=== PATIENT | female | born 1965 | race Caucasian/White ===

== ENCOUNTER → 2025-01-06 | Outpatient (CLI) | payer SELFPAY, OTHER ==
--- NOTE | 2025-01-06 14:25 | ECHOD_ITS ---
Reason For Study Reason For Study: FATIGUE Procedure This was a 2D Doppler, Color Flow transthoracic echocardiogram. Exam performed in department. Left Ventricle Normal size and thickness. The LV ejection fraction is 65 %. Normal diastololic function. Right Ventricle Normal right ventricle. Atria The left and right atria are normal. Mitral Valve Trivial mitral valve insufficiency. Tricuspid Valve Mild tricuspid valve insufficiency. Right ventricular systolic pressure estimated to be 37 mmHg. Aortic Valve Normal aortic valve. Trivial to mild aortic valve insufficiency. Pulmonic Valve Trivial pulmonic valve insufficiency. Great Vessels Mildly dilated aortic root. Pericardium/Pleural No pericardial effusion. MMode/2D Measurements & Calculations LVIDd: 4.5 cm IVSd: 0.63 cm Ao root diam: 3.9 cm LVIDs: 3.0 cm LVPWd: 0.71 cm FS: 32.3 % LAV(MOD-bp): 31.3 ml LVAd ap4: 26.2 cm2 SV(MOD-sp4): 46.2 ml LAV(MOD-bp) Indexed: 19.1 ml/m2 LVLd ap4: 8.1 cm SI(MOD-sp4): 28.1 ml/m2 LAV(MOD-sp2): 44.9 ml EDV(MOD-sp4): 71.9 ml LAV(MOD-sp4): 21.7 ml EDV(sp4-el): 72.1 ml LVAs ap4: 13.7 cm2 LVLs ap4: 6.5 cm ESV(MOD-sp4): 25.7 ml ESV(sp4-el): 24.2 ml EF(MOD-sp4): 64.3 % EF(sp4-el): 66.4 % SV(sp4-el): 47.9 ml LA A4 area: 11.6 cm2 LA dimension(2D): 3.0 cm RA A4 area: 7.8 cm2 Time Measurements MV dec time: 0.21 sec Doppler Measurements & Calculations MV E max luis: 72.4 cm/sec Lat Peak E' Luis: 9.8 cm/sec Med Peak E' Luis: 7.0 cm/sec MV A max luis: 77.8 cm/sec E/E' lat: 7.4 E/E' med: 10.4 MV E/A: 0.93 MV V2 max: 81.5 cm/sec Ao V2 max: 122.5 cm/sec MV max P.7 mmHg MV dec slope: 394.0 cm/sec2 Ao max P.0 mmHg MV V2 mean: 50.7 cm/sec Ao V2 mean: 81.5 cm/sec MV mean P.2 mmHg Ao mean P.1 mmHg MV V2 VTI: 25.7 cm Ao V2 VTI: 30.7 cm AV (velocity ratio): 0.92 AI max luis: 421.8 cm/sec LV V1 max: 115.6 cm/sec PA V2 max: 78.1 cm/sec AI max P.2 mmHg LV V1 max P.4 mmHg PA V2 mean: 58.4 cm/sec LV V1 mean P.9 mmHg AI dec slope: 253.1 cm/sec2 LV V1 mean: 80.4 cm/sec AI P1/2t: 488.0 msec LV V1 VTI: 28.3 cm TR max luis: 237.1 cm/sec TR max P.5 mmHg ECHO/Echo Complete Interpretation Summary The LV ejection fraction is 65 %. Mild tricuspid valve insufficiency. Right ventricular systolic pressure estimated to be 37 mmHg. Trivial to mild aortic valve insufficiency. Mildly dilated aortic root. Ordering Physician: Chema Ramírez Referring Physician: Chema Ramírez Performed By: Nettie Ryan RCS
== END | disposition home or self-care (01) ==
PROVIDERS: PCP Physician Assistant; Referring Provider Internal Medicine Cardiovascular Disease; Visit Provider Internal Medicine Cardiovascular Disease
DX: R53.83 Other fatigue (principal)
CPT/HCPCS: 93306

== ENCOUNTER → 2025-01-08 | Outpatient (CLI) | payer SELFPAY, OTHER ==
--- NOTE | 2025-01-08 10:21 | STE_ITS ---
Reason For Study Reason For Study: CHEST PAIN Stress Results Protocol: Lino Protocol Maximum Predicted HR: 163 bpm Target HR: 139 bpm % Maximum Predicted HR: 87 % DurationHeart Rate Stage (mm:ss) (bpm) BP Comment BASELINE 75 122/68 STAGE 1 3:00 104 126/80 STAGE 2 3:00 123 150/82TIGHTNESS IN CENTER OF CHEST 2/10 PAIN, NO RADIATION STAGE 3 3:00 137 162/84DISCOMFORT ON BOTH SIDES OF CHEST-HEAVIER BREATHING NOTED STAGE 4 0:15 142 / HEAVIER BREATHING RECOVERY 89 136/78 Stress Duration: 9:15 mm:ss Maximum Stress HR: 142 bpm Baseline Echocardiogram Findings The left ventricular ejection fraction is 65 %. Normal systolic function. Stress Echo Wall motion Data Resting WM Intermediate WM Stress WM Resting Wall Motion Wall Motion Stress No regional wall motion abnormalities All segments Hyperkinetic. noted. EKG Data Normal baseline electrocardiogram. Sinus tachycardia with no ischemic changes at a good workload. No arrhythmias noted. ECHO/Stress Test Echo w/o Contrast Interpretation Summary Exercised on the treadmill for 9 minutes and 15 seconds. No ischemic ECG change s. Good blood pressure response to exercise. Mild chest discomfort reported. Hyperdynamic LV response to exercise with augmentation of all wall segments. No echo evidence of ischemia. Negative exercise ECG and echo for ischemia. Ordering Physician: Chema Ramírez Referring Physician: Chema Ramírez Performed By: Eva Cao RDCS
--- OUTSIDE RECORDS SUMMARY | 2025-01-08 18:57 | XMS RPT_ITS | CCD ---
Author Organization [facility] Inform ion Partnership [facility] Care Team Providers Care Allergist/Immunologist Name Role Phone Town Doctor, Out of Primary Care Provider [facility], [facility] of Referring Provider Unavailab sary Harper MD, Dr. Bear Attending Provider Nader ALMONTE, Jair Kwon Unavailable Dr. Gregor Victoria MD Unavailable Jay Rose MD Unavailable Josh SENAN, Rocio Rajan Unavailable Unavailable Sunitha RAYMOND, Shahida Britton Unavailable Unavailab sary Joseph LPN, Christina Anderson Unavailable Unavailab sary Whittaker PA-C, Sarahy Muse Unavailable Eusebio SENAN, Rosa Mercado Unavailable Unavaila carmen Pereyra LPN, She Unavailable Unavailable Unavailable Unavailable Sangita'GARY CACERES CNM Primary Care Unavailable VACCNIA, LILA Consulting Unavailable Sangita'GARY CACERES CNM Attending Unavailable Sangita'GARY CACERES CNM Admitting Unavailable PROVIDER, UNKNOWN Consulting Unavailable PROVIDER, UNKNOWN Consulting Unavailable PROVIDER, UNKNOWN Consulting Unavailable LILA OTOOLE Consulting Unavailable CHEMA HARPER MD Admitting Unavailable CHEMA HARPER MD Primary Care Unavailable CHEMA HARPER MD Attending Unavailable PROVIDER, UNKNOWN Consulting Unavailable PROVIDER, UNKNOWN Consulting Unavailable PROVIDER, UNKNOWN Consulting Unavailable Sangita'GARY CACERES CNM Primary Care Unavailable Sangita'GARY CACERES CNM Attending Unavailable SYDNIE, LILA Consulting Unavailable Sangita'GARY CACERES CNM Admitting Unavailable PROVIDER, UNKNOWN Consulting Unavailable PROVIDER, UNKNOWN Consulting Unavailable PROVIDER, UNKNOWN Consulting Unavailable Chema Harper Attending Unavailable [facility] Doctor, Out of Referring Unavailable [facility] Doctor, Out of Primary Care Unavailable Chema Harper Referring Unavailable Chema Harper Attending Unavailable Sarahy Price Primary Care Unavailable Chema Harper Attending Unavailable Sarahy Price Primary Care Unavailable Chema Harper Referring Unavailable Medications Current Medications Medication Drug Class(es) Dates Sig (Normalized) Sig (Original) ascorbate calcium-bioflavonoid (Mayra-C with Bioflavonoids) (1 source) Start: 12-02-2024 ascorbate calcium-bioflavonoid (Mayra-C with Bioflavonoids) Active PO December 02, 2024 12:00am hydrocortisone 25 mg/ml topical cream (2 sources) Corticosteroid Start: 10-12-2020 Hydrocortisone (Perianal) 2.5 % External Cream ; 1 (one) application BID to hemmorhoids for 0 days Quantity: 30 {Gram} Refills: 0 Ordered: 12-Oct-2020 GAGE Whittaker Start: 12-Oct-2020 Start: 10-12-2020 End: 10-19-2020 Anusol-HC 25 MG Rectal Suppo sitory ; 1 (one) Suppository two times daily per rectum for 7 days Quantity: 14 {Suppository} Refills: 0 Ordered: 12-Oct-2020 GAGE Whittaker Start: 12-Oct-2020 End: 19-Oct-2020 Status: Inactive liothyronine sodium 0.005 mg oral tablet (1 source) l-Triiodothyronine Start: 12-02-2024 take 1 tablet by mouth once daily Liothyronine (Cytomel) 5 mcg tablet Active 10 ug PO daily December 02, 2024 12:00am Progesterone (1 source) Progesterone Start: 12-02-2024 progesterone micronized Active PO DAILY December 02, 2024 12:00am Thyroid (Pork) (Chester Thyroid) 60 mg tablet (1 source) Start: 12-02-2024 take 1 tablet by mouth once daily Thyroid (Pork) (Chester Thyroid) 60 mg tablet Active 60 mg PO daily December 02, 2024 12:00am thyroid (halfway) 60 mg oral tablet (1 source) take 0.25 tablet by mouth every other day ARMOUR THYROID, 60MG (Oral Tablet) ; 1/4 every other day (60 MG) Completed/Discontinued Medications Medication Drug Class(es) Dates Sig (Normalized) Sig (Original) citalopram 20 mg oral tablet (1 source) Serotonin Reuptake Inhibitor Start: 06-22-2010 End: 04-18-2014 take 0.5 tablet by mouth once daily CITALOPRAM HYDROBROMIDE, 20MG (Oral Tablet) ; 1/2 Tablet daily for 0 days Quantity: 30 {Tablet} Refills: 5 Ordered: 18-Apr-2014 SEGUNDO Kaplan Start: 22-Jun-2010 End: 18-Apr-2014 Status: Inactive Comments: For home delivery Comment on above: For home delivery LORazepam 0.5 mg oral tablet (1 source) Benzodiazepine Start: 04-18-2014 End: 06-24-2014 take 1 tablet by mouth three times daily as needed for anxiety LORAZEPAM, 0.5MG (Oral Tablet) ; 1 (one) Tablet Tablet three times daily PRN anxiety for 0 days Quantity: 15 {Tablet} Refills: 0 Ordered: 24-Jun-2014 Start: 18-Apr-2014 End: 24-Jun-2014 Status: Inactive traZODone hydrochloride 50 mg oral tablet (1 source) Serotonin Reuptake Inhibitor Start: 03-15-2011 End: 04-18-2014 take 1 tablet by mouth once daily at bedtime TRAZODONE HCL, 50MG (Oral Tablet) ; 1 Tablet daily at HS for 0 days Quantity: 30 {Tablet} Refills: 0 Ordered: 18-Apr-2014 SEGUNDO Kaplan Start: 15-Mar-2011 End: 18-Apr-2014 Status: Inactive Problems Active Problems Problem Classification Problem Date Documented Da te Episodic/Chronic Hemorrhoids (5 sources) External hemorrhoids; Translations: [Residual hemorrhoidal skin tags] 10-12-2020 Episodic Malaise and fatigue (7 sources) Fatigue; Translations: [Other fatigue] Onset: 12-17-2024 12-02-2024 Episodic Nonspecific chest pain (7 sources) Chest pain; Translations: [Chest pain, unspecified] Onset: 12-17-2024 12-02-2024 Episodic Other aftercare (2 sources) Drug indicated; Translations: [Other terminal computer operator (current) drug therapy] 08-03-2011 Episodic Other ear and sense organ disorders (2 sources) Impacted cerumen 10-12-2020 Episodic Residual codes; unclassified (2 sources) Family history of coronary arteriosclerosis; Translations: [Family history of ischemic heart disease and other diseases of the circulatory system] 12-02-2024 Episodic Residual codes; unclassified (2 sources) Insomnia; Translations: [Insomnia, unspecified] 10-12-2020 Episodic Residual codes; unclassified (1 source) Family history of ischemic heart disease and other diseases of the circulatory system; Translations: [Family history of ischemic heart disease and other diseases of the circulatory system] Onset: 12-17-2024 Episodic Thyroid disorders (3 sources) Hypothyroidism; Translations: [Hypothyroidism, unspecified] Onset: 12-17-2024 12-02-2024 Chronic Past or Other Problems Problem Classification Problem Date Documented Date Episodic/Chronic Other screening for suspected conditions (not mental disorders or infectious disease) (3 sources) Encounter for screening mammogram for malignant neoplasm of breast; Translations: [Encounter for screening mammogram for malignant neoplasm of breast] Onset: 08-05-2024 Episodic Unclassified (1 source) hemorrhoids - Pt has had hemorrhoids for years and has been treated with cream and suppositories which has helped in the past. Pt had colonoscopy (11/2018 with Gregor Victoria) and has 1 internal hemorrhoid that surgeon advised should be taken out but she has not done that yet.Gradually they flare with BMs. Doesn't take stool softeners and BMs are regular.On Monday after a BM (did not strain with it) she had burning afterwards. Used OTC cream. Did sitz bath this am. Had 1/2 of old suppository so used that yesterday. 10-12-2020 Unclassified (1 source) Thrombosed Hemorrhoid - Pt. here with c/o thrombosed hemorrhoid. Started last week. Very painful cant sit ,stand, or lay for any lenght of time. Rx suppositorys which states helps but not getting any better. States bowel movments are regular. 06-26-2014 Unclassified (1 source) Follow up diagnostic procedure results - Diagnostic tests performed on : (04-22-14) include treadmill exercise stress test (And ECHO). Note for Diagnostic procedure results follow-up: Continues with chest heaviness. 05-02-2014 Unclassified (1 source) Chest pain - The onset of the pain has been gradual and has been occurring in a recurrent pattern for 2 months. The pain is described as a moderate pressure sensation (heaviness). The pain is described as being located in the substernal area and radiates to the left arm, right arm and shoulders. The pain is precipitated by exercise (and lying down). The symptoms are aggravated by exertion. The symptoms are relieved by rest. The symptoms have been associated with dyspnea, palpitations and shoulder pain, but have not been associated with blurred vision, cough, dizziness, diaphoresis, emotional stress, fever, headache, history of heart disease, history of ulcer disease, hypertension, nausea, syncope or vomiting. There have been no previous evaluations. There is a family history of coronary artery disease. 04-18-2014 Unclassified (1 source) left ear plugged - Patient has noted decreased hearing in left ear the last few days. She has had her ears irrigated previously and wants this done again. Patient is leaving for vacation tomorrow and will be gone for one week. 08-04-2011 Unclassified (1 source) Fatigue - The onset of the fatigue has been gradual and has been occurring in a persistent pattern for 4 months. The course has been increasing. The fatigue occurs all the time. The symptoms have been associated with abdominal pain (nausea and patient needs to lie down. Patient noted decreased appetite.), chest pain (heaviness on chest), dyspnea, headache and use of anti-depressants (Patient had used thought about 2 yrs ago,but she is not taking the Citalaprim now.). 03-15-2011 Results Test Name Value Interpretation Reference Range Facil ity CMP with eGFRon 01-03-2025 AGE 59 years Normal [facility] Comment on above: Performed By: #### 2 [id number] #### [facility],[address] [place], [place] [id number] Albumin [Mass/Vol] 3.7 g/dL Normal 3.4 - 5.0 [facility] Comment on above: Performed By: #### 2 29266 #### [facility],[address] [place], [place] [id number] Albumin/Globulin [Mass ratio] 0.9 {ratio} Normal 0.9 - 1.6 [facility] Comment on above: Performed By: #### 2 47439 #### [place] [address],[place] [address] ALK PHOS 50 U/L Normal 46 - 116 [facility] Comment on above: Performed By: #### 2 97246 #### [facility],[address] [place] [address]146 ALT [Catalytic activity/Vol] 37 U/L Normal 16 - 63 [facility] Comment on above: Performed By: #### 2 02320 #### [facility],[address] [place] [address]661 Anion gap [Moles/Vol] 10 mmol/L Normal 10 - 20 [facility] Comment on above: Performed By: #### 2 62627 #### [facility],[address] [place] [address] 46774 AST [Catalytic activity/Vol] 24 U/L Normal 13 - 39 [facility] Comment on above: Performed By: #### 2 20013 #### [facility],[address] [place] [address] 97565 B/C RATIO 16 ratio Normal 0 - 30 [facility] Comment on above: Performed By: #### 2 58965 #### [facility],[address] [place] [address] 50004 Bilirubin [Mass/Vol] 1.5 mg/dL High 0.2 - 1.0 [facility] Comment on above: Performed By: #### 2 59983 #### [facility],[address] [place] [address] 67384 Calcium [Mass/Vol] 9.0 mg/dL Normal 8.5 - 10.1 [facility] Comment on above: Performed By: #### 2 79953 #### [facility],[address] [place] [address] 19260 Chloride [Moles/Vol] 107 mmol/L Normal 98 - 107 [facility] Comment on above: Performed By: #### 2 89819 #### [facility],[address] [place] [address] 53561 CMP with eGFR Normal [facility] Comment on above: Result Comment: COMP REHENSIVE METABOLIC PANEL Performed By: #### 2 78350 #### [facility],[address] [place] [address] 94338 CO2 [Moles/Vol] 27.0 mmol/L Normal 21.0 - 32.0 [facility] Comment on above: Performed By: #### 2 76930 #### [facility],[address] [place] [address] 47143 Creatinine [Mass/Vol] 0.77 mg/dL Normal 0.55 - 1.02 [facility] Comment on above: Performed By: #### 2 75860 #### [facility],[address] [place] [address] GFR/1.73 sq M.predicted among non-blacks MDRD (S/P/Bld) [Vol rate/Area] mL/min/{1.73_m2} Normal 60 - 999 [facility] Comment on above: Performed By: #### 2 98168 #### [facility],[address] [place] [address] Result Comment: ACCO RDING TO THE NATIONAL KIDNEY DISEASE EDUCATION PROGRAM(NKDE), A NORMAL eGFR IS A VALUE GREATER THAN OR EQUAL TO 60 ML/MIN/1.73 SQ METERS. CHRONIC KIDNEY DISEASE: <60mL/MIN/1.73 SQ METERS KIDNEY FAILURE: <15mL/MIN/1.73 SQ METERS THIS TEST SHOULD ONLY BE USED FOR PATIENTS 18 YEARS OF AGE AND OLDER. Globulin (S) [Mass/Vol] 4.0 g/dL High 1.5 - 3.8 [facility] Comment on above: Performed By: #### 2 68527 #### [facility],[address] [place] [address] 58096 Glucose [Mass/Vol] 85 mg/dL Normal 74 - 106 [facility] Comment on above: Performed By: #### 2 24366 #### [facility],[address] [place] [address] 91374 Potassium [Moles/Vol] 4.1 mmol/L Normal 3.5 - 5.1 [facility] Comment on above: Performed By: #### 2 50783 #### [facility],[address] [place] [address] 17515 Protein [Mass/Vol] 7.7 g/dL Normal 6.4 - 8.2 [facility] Comment on above: Performed By: #### 2 11785 #### [facility],[address] [place] [address] 82581 Sodium [Moles/Vol] 140 mmol/L Normal 136 - 145 [facility] Comment on above: Performed By: #### 2 98507 #### [facility],[address] [place] [address] 88635 Urea nitrogen [Mass/Vol] 12 mg/dL Normal 7 - 18 [facility] Comment on above: Performed By: #### 2 61040 #### [facility],[address] [place] [address] 005[address] LIPID PROFILEon 01-03-2025 Cholesterol [Mass/Vol] 198 mg/dL Normal 0 - 240 [facility] Comment on above: Performed By: #### 2 55546 #### [facility],[address] [place] [address] 50121 Cholesterol in HDL [Mass/Vol] 54 mg/dL Normal 40 - 60 [facility] Comment on above: Performed By: #### 2 27688 #### [facility],[address] [place] [address] 56043 Cholesterol in LDL [Mass/Vol] 129 mg/dL Normal 0 - 129 [facility] Comment on above: Performed By: #### 2 67586 #### [facility],[address] [place] [address] 72925 Cholesterol.total/ Cholesterol in HDL [Mass ratio] 3.7 {ratio} Normal 0.0 - 5.0 [facility] Comment on above: Performed By: #### 2 08081 #### [facility],[address] [place] [address] 51934 Lipid 1996 panel Normal [facility] Comment on above: Result Comment: LIPI D PROFILE Performed By: #### 2 05258 #### [facility],[address] [place] [address] 45092 Triglyceride [Mass/Vol] 74 mg/dL Normal 0 - 150 [facility] Comment on above: Performed By: #### 2 15342 #### [facility],[address] [place] [address] 92522 Cardiology Visit Reporton Cardiology Visit Report [facility] [place] [id number] OFFICE VISIT Date of Service: 12/02/24 MR#: [id number] Acct: [id number] Name: KADI VICTORIA Rep #: [id number] : 1965 Provider: Dr. Chema Harper MD Age/Sex: 59/F Location: [facility] Status: Signed HPI HPI History of Present Illness Details: This pleasant lady has a family history of coronary artery disease. For the past few months, she has been feeling unduly exhausted after physical activity. Per her, she sometimes gets chest tightness with exertion but not reliably or predictably so. Denies any shortness of breath with exertion. Per her, it is an hour or so after the physical activity that she really feels exhausted. Denies orthopnea or PND. No ankle edema. In the past, she had some complaints of heart beating very strong particularly at night. However those symptoms have since resolved. Per patient, she has recently had her blood workup done by her primary care physician including CBC and TSH. These were all within normal range. Intake Vital Signs 12/02/24 11:15 Height 5 ft 2 in Weight: 143 lb BMI 26.2 BP 127/77 H Blood Pressure Location Lt brachial Position Sitting Respiration 18 Pulse 72 Pulse Source NIBP Intake Visit Reasons: CP (FREDDY) French Edge Operator Required: No Accompanied by: Is patient in pain?: No Allergies No Known Drug Allergies Allergy (Verified 12/02/24 11:16) Other Medications ???Medication ???Instructions ???Recorded ???Confirmed ???Type ascorbate calcium-bioflavonoid PO 12/02/24 12/02/24 History [Mayra-C with Bioflavonoids] liothyronine 5 mcg tablet (Cytomel) 10 mcg PO QDAY 12/02/24 5 History progesterone micronized PO DAILY 12/02/24 12/02/24 History thyroid (pork) 60 mg tablet 60 mg PO QDAY 12/02/24 12/02/24 Hi story (Chester Thyroid) Ejection fraction %: 55 Have you fallen in the past year?: No PFSH Medical History Chest pain Family history of coronary artery disease Fatigue Wheezing ROS Const Const: Positive for fatigue and weakness; Negative for headache(s) or weight gain ENT ENT: Negative for headache(s), dizziness, Nosebleed/epistaxis or balance problems Cardio Chest Pain: No Frequency: weekly and other Character: tightness and squeezing Onset: at rest Location: mid sternal and left chest Duration: brief Exacerbation: exercise Palpitations: Yes feels like its: fast Edema: None Muscle aches with walking: None Resp Respiratory: Negative for SOB with activity, SOB at rest or SOB orthopnea SOB lying down GI GI: Positive for nausea and heartburn; Negative vomiting Musc Musc: Positive for muscle weakness; Negative for muscle aches/ myalgia, joint pain or balance problems Neuro Neuro: Positive for lightheadedness (single episode) and weakness; Negative for dizziness, near syncope, syncope or headache(s) Endo Endo: Positive for fatigue Cardiology Exam Const Appearance: comfortable and no acute distress Nutritional Appearance: well nourished Neck Neck: no JVD Carotids: Negative bruit Chest Auscultation: Bilateral: Clear to Auscultation Cardio Rate: regular rate Rhythm: regular rhythm Heart sounds: S1 normal and S2 normal Neuro General: patient alert, patient awake and patient oriented x3 Extremities Lower Extremity Edema: None: Bilateral Supplemental Info Supplemental Information Echocardiogram 04/22/2014: Conclusion: 1. Normal left ventricular systolic function, ejection fraction 55%. 2. Trivial mitral insufficiency. 3. Mild tricuspid insufficiency. 4. Trivial aortic insufficiency. 5. Trivial pulmonic insufficiency. 6. Right ventricular systolic pressure estimated to be 19mmHg. Stress Test 04/22/2014: Stress SPECT with Treadmill Exercise Interpretation: Resting Images: Normal perfusion throughout the left ventricle. No resting defects noted. Stress Images: Normal perfusion throughout the left ventricle. No fixed defects to suggest infarct. No reversible defects developing with stress to suggest inducible ischemia. Gated SPECT/wall motion: Normal wall motion with brightening in all segments, calculated ejection fraction of 70%. Conclusion: 1. Stress nuclear study demonstrating no evidence of infarct or inducible ischemia. Electrocardiogram Stress Test Conclusion: 1. Good exercise tolerance achieving a workload of 10.1 METs. 2. Shortness of breath and substernal chest burning suspicious for angina noted with stress. 3. No ST changes to suggest ischemia elicited with stress. 4. Nuclear images demonstrate no evidence of infarct or inducible ischemia, calculated ejection fraction of 70%. Assessment and Plan Assessment and Plan (1) C (more content not included)... Normal [facility] 3D MAMM BILAT SCREEN [facility] 08-05-2024 3D MAMM BILAT SCREEN [place] [address] Patient: KADI VICTORIA Phone#: : [phone] Age: 59 Gender: F Pt. Type: Out Account: [id number] Location: Ordering: GARY SINCLAIR Exam Date: 08/05/2024/14:51 Family Phys: [facility] Charge Code: 687323 Physician: Ogle Order #: [id number] Dose#: PROCEDURE: BILATERAL SCREENING BREAST TOMOSYNTHESIS MAMMOGRAM WITH CAD COMPARISON: None. INDICATIONS: SCREENING BREAST COMPOSITION: Scattered areas fibroglandular density. FINDINGS: DIAGNOSTIC CATEGORY 1--NEGATIVE: RIGHT BREAST: No significant suspicious finding. LEFT BREAST: No significant suspicious finding. RECOMMENDATIONS: ROUTINE MAMMOGRAM AND CLINICAL EVALUATION IN 12 MONTHS. PLEASE NOTE: A NORMAL MAMMOGRAM DOES NOT EXCLUDE THE POSSIBILITY OF BREAST CANCER. A CLINICALLY SUSPICIOUS PALPABLE LUMP SHOULD BE BIOPSIED. THIS FACILITY UTILIZES A REMINDER SYSTEM TO ENSURE THAT ALL PATIENTS RECEIVE REMINDER LETTERS FOR APPOINTMENTS. THIS INCLUDES REMINDERS FOR ROUTINE MAMMOGRAMS, DIAGNOSITC MAMMOGRAMS, OR OTHER BREAST IMAGING INTERVENTIONS WHEN APPROPRIATE. THIS PATIENT WILL BE PLACED IN THE APPROPRIATE REMINDER SYSTEM. Dictated by: Jessica Byers MD on 08/06/2024 at 10:09 Approved by: Jessica Byers MD on 08/06/2024 at 10:12 Normal [facility] HPVon 06-27-2024 HPV Interp Normal See Interp HPVN [facility] Comment on above: Order Comment: Order placed by AP_HPV_ORDER rule from [id number] Result Comment: High Risk HPV Typing: NEGATIVE HPV types 16, 18, 31, 33, 35, 39, 45, 51, 52, 56, 58, 59, 66 and 68 DNA were undetectable or below the pre-set threshold. The woo High-Risk HPV DNA Test is not intended for use as a screening device for Pap normal women under age 30 and is not intended to substitute for regular Pap screening. The woo High-Risk HPV DNA Test is designed to augment existing methods for the detection of cervical disease and should be used in conjunction with clinical information derived from other diagnostic and screening tests, physical examinations and full medical history in accordance with appropriate patient management procedures. NOTE: A negative result does not preclude the presence of HPV infection because results depend on adequate specimen collection, absence of inhibitors and sufficient DNA to be detected. See Interp HPVN Performed By: #### H PV #### [address] [address] HPV Source Cervix Normal [facility] Comment on above: Order Comment: Order placed by AP_HPV_ORDER rule from [id number] Performed By: #### H PV #### [address] [address] Contour Path Tape Mill Operator Cytology Reporton 2024 Contour Path Tape Mill Operator Cytology Report . Pathology Reports Accession: Collected Date/Time: Received Date/Time: Pathologist: [id number] 06/20/2024 10:24 EST 06/21/2024 18:00 EST Contour Path Tape Mill Operator Cytology Report SPECIMEN: Specimen Description: Liquid Prep w/ HPV Specimen: Cervical/Endocervical Screening or Diagnostic: Screening RELEVANT HISTORY: LMP: MENOPAUSAL SPECIMEN ADEQUACY: SATISFACTORY FOR EVALUATION Endocervical/Transfor mational zone component present INTERPRETATION/RESULT S: NEGATIVE FOR INTRAEPITHELIAL LESION OR MALIGNANCY ADJUNCTIVE TESTING: HIGH RISK HPV DNA TESTING ORDERED, REPORT TO FOLLOW UNDER SEPARATE COVER COMMENT: This Pap Test was successfully processed and evaluated with the assistance of the [employer] ThinPrep Test Imaging System. Electronically Signed by Pathology report verified by [facility] Screened by: KK Electronically signed by Bambi LNOGORIA (ASCP) Sign-Out Date: 06/25/2024 15:53 Performing Lab: [facility], [address] [place] [address] Pathology Dept Disclaimer The Pap test is a screening test for cervical cancer. As evidenced by published data, it is subject to both inherent false negative and false positive results. Your patient's results should be interpreted in context with pertinent clinical history including gynecological examination. Normal [facility] 25-Hydroxy D2+D3on 25-Hydroxy D Total 49.0 ng/mL Normal 30.0-100.0 [facility] Comment on above: Performed By: #### D 2D3 #### [facility] Chemistry [address] [place] [phone] #### FREET3 #### [facility] Routine Lab [address] [place] [phone] 25-Hydroxy D2 <4.0 Normal [facility] Comment on above: Performed By: #### D 2D3 #### [facility] Chemistry [address] [phone] #### FREET3 #### [facility] Routine Lab [address] [address] 25-Hydroxy D3 49.0 ng/mL Normal [facility] Comment on above: Performed By: #### D 2D3 #### [facility] Chemistry [address] [phone] #### FREET3 #### [facility] Routine Lab [address] [place] [phone] Free T3on 06-23-2021 Free T3 [Mass/Vol] 4.3 pg/mL High 2.3-4.1 [facility] Reference Lab Comment on above: Performed By: #### D 2D3 #### [facility] Chemistry [address] [place], [place] [address] #### FREET3 #### [facility] Routine Lab [address] [place], [place] [id number] Final Surgical Pathology Rep justin 11-27-2020 Final Surgical Pathology Report . Pathology Reports Accession: Collected Date/Time: Received Date/Time: Pathologist: [id number] 11/25/2020 08:35 EDT 11/26/2020 08:35 EDT ESTELLA KAY MD Final Surgical Pathology Report DIAGNOSIS: HEMORRHOIDS - ANAL SKIN AND GLANDULAR MUCOSA WITH HISTOLOGIC FEATURES OF HEMORRHOIDS. NEGATIVE FOR DYSPLASIA OR MALIGNANCY. COMMENT: [facility] - [id number] CLINICAL INFORMATION: HEMORRHOIDS SPECIMEN: A HEMORRHOIDS GROSS DESCRIPTION: A. Received in formalin, labeled with the patients name, Case #Reymundo, and hemorrhoid are 8 cardozo -lilly wrinkled portions of soft tissue possible skin ranging in size from 0.5 to 1.5 cm greatest dimension. TS -1. Dictated by JAY LOPEZ MICROSCOPIC DESCRIPTION: Slides reviewed. Electronically Signed by Pathology Report verified by [facility] Electronically signed by ESTELLA KAY Sign out Date: 11/27/2020 14:40 Performing Lab: [facility], [address] [place] [address] ([place]) Comment on above: Performed By: #### S PFR #### [place] [address] Laboratory - Chemistry and C hemistry - challengeon 01-01-2014 T3/Triiodothyronin e (T3) uptake index [Ratio] 43 % Abnormal 24 - 34 % [facility], [facility].; [facility] [employer] Work Phone: T4 [Mass/Vol] 6.5 ug/dL Normal 6.0 - 12.2 ug/dL [facility], [facility].; [facility] [employer]. Work Phone: T4/Triiodothyronin e (T3) uptake index [Mass ratio] 2.8 Normal 1.0 - 4.[address] [facility]; [facility] Work Phone: TSH Qn 2.92 m[IU]/L Normal 0.34 - 5.60 {uIU/ml} [facility]; [facility] Work Phone: Laboratory - Chemistry and C hemistry - challengeon 03-15-2011 Albumin [Mass/Vol] 4.5 g/dL Normal 3.6 - 5.1 g/dL [facility]; [facility] Albumin/Globulin [Mass ratio] 1.3 {ratio} Normal 1.0 - 2.[address] [facility]; [facility] ALP [Catalytic activity/Vol] 59 U/L Normal 33 - 115 U/L [facility]; [facility]. ALT [Catalytic activity/Vol] 19 U/L Normal 6 - 40 U/L [facility]; [facility]. AST [Catalytic activity/Vol] 21 U/L Normal 10 - 30 U/L [facility]; [facility] Bilirubin [Mass/Vol] 1.3 mg/dL Abnormal 0.2 - 1.2 mg/dL [facility]; [facility], [facility] Calcium [Mass/Vol] 10.0 mg/dL Normal 8.6 - 10. 2 mg/dL [facility].; [facility]. Chloride [Moles/Vol] 104 mmol/L Normal 98 - 110 mmol/L [facility]; [facility], [facility]. CO2 [Moles/Vol] 22 mmol/L Normal 21 - 33 mmol/L [facility]; [facility], [facility] Creatinine [Mass/Vol] 0.90 mg/dL Normal 0.59 - 1.07 mg/dL [facility].; [facility] GFR/1.73 sq M.predicted among blacks MDRD (S/P/Bld) [Vol rate/Area] 91 {ML/MIN/1.73M2} Normal [facility], [facility].; [facility], [facility] GFR/1.73 sq M.predicted MDRD (S/P/Bld) [Vol rate/Area] 78 {ML/MIN/1.73M2} Normal [facility], [facility].; [facility], [facility] Globulin (S) [Mass/Vol] 3.4 g/dL Normal 2.2 - 3.9 g/dL [facility], [facility].; [facility], [facility] Glucose [Mass/Vol] 83 mg/dL Normal 65 - 99 mg/dL [facility].; [facility], [facility]. Potassium [Moles/Vol] 4.2 mmol/L Normal 3.5 - 5.3 mmol/L [facility].; [facility], [facility] Protein [Mass/Vol] 7.9 g/dL Normal 6.2 - 8.3 g/dL [facility].; [facility], [facility] Sodium [Moles/Vol] 137 mmol/L Normal 135 - 146 mmol/L [facility], [facility].; [facility], [facility]. TSH Qn 1.56 m[IU]/L Normal 0.40 - 4.50 {mIU/L} [facility].; [facility], [facility]. Urea nitrogen [Mass/Vol] 12 mg/dL Normal 7 - 25 mg/dL [facility], [facility].; [facility], [facility] Urea nitrogen/Creatinin e [Mass ratio] 13.1 mg/mg Normal 6 - [address] [facility]; [facility]. Laboratory - Hematology and Cell countson 03-15-2011 Basophils (Bld) [#/Vol] 10 {Cells}/uL Normal 0 - 200 {Cells}/uL [facility].; [facility], [facility]. Basophils/100 WBC (Bld) 0 % Normal 0 - 2 % [facility], [facility].; [place] [employer] [facility], [facility]. Eosinophils (Bld) [#/Vol] 190 {Cells}/uL Normal 15 - 500 {Cells}/uL [facility].; [facility], Inc[facility] Eosinophils/100 WBC (Bld) 2 % Normal 0 - 8 % [facility].; [facility] Erythrocyte distribution width (RBC) [Ratio] 13.1 % Normal 11.0 - 15.0 % [facility].; [facility] Hematocrit (Bld) [Volume fraction] 40.7 % Normal 35.0 - 45.0 % [facility].; [facility] Hemoglobin (Bld) [Mass/Vol] 13.7 g/dL Normal 11.7 - 15.5 g/dL [facility].; [facility] Lymphocytes (Bld) [#/Vol] 3350 {Cells}/uL Normal 850 - 3900 {Cells}/uL [facility].; [facility] Lymphocytes/100 WBC (Bld) 36 % Normal 15 - 49 % [facility].; [place] [facility]. MCH (RBC) [Entitic mass] 33.8 pg Abnormal 27.0 - 33.0 PG [facility].; [place] [facility], [facility]. MCHC (RBC) [Mass/Vol] 33.7 g/dL Normal 32.0 - 36.0 g/dL [facility].; [place] [employer] [facility], [facility]. MCV (RBC) [Entitic vol] 100.4 fL Abnormal 80.0 - 100.0 fL [facility].; [place] [facility]. Monocytes (Bld) [#/Vol] 420 {Cells}/uL Normal 200 - 950 {Cells}/uL [facility].; [place] [employer] [facility]. Monocytes/100 WBC (Bld) 5 % Normal 0 - 13 % [facility].; [place] [employer] [facility], [facility]. Neutrophils (Bld) [#/Vol] 5230 {Cells}/uL Normal 1500 - 7800 {Cells}/uL [facility].; [place] [facility], [facility]. Neutrophils/100 WBC (Bld) 57 % Normal 38 - 80 % [facility].; [place] [facility], [facility]. Platelets (Bld) [#/Vol] 188 10*3/uL Normal 140 - 400 10*3/uL [facility].; [facility], [facility]. RBC (Bld) [#/Vol] 4.06 10*6/uL Normal 3.80 - 5.1 0 10*6/uL [facility], [facility].; [facility], Inc[facility] WBC (Bld) [#/Vol] 9.2 10*3/uL Normal 3.8 - 10.8 10*3/uL [facility] [place] [facility], Inc[facility] Vital Signs Date Time Vital Sign Value Performing Clinician Facmelony lity 12-02-2024 11:15-0400 Body height 157.48 cm Out [facility] 12-02-2024 11:15-0400 Body mass index (BMI) [Ratio] 26.2 kg/m2 [facility] 12-02-2024 11:15-0400 Body weight 64.86 kg [facility] 12-02-2024 11:15-0400 Diastolic blood pressure 77 mm[Hg] [facility] 12-02-2024 11:15-0400 Heart rate 72 /min Out [facility] 12-02-2024 11:15-0400 Respiratory rate 18 /min Out [facility] 12-02-2024 11:15-0400 Systolic blood pressure 127 mm[Hg] [facility] 10-12-2020 10:56-0400 Body height 157.48 cm Christina Joseph LPN [facility] [place] [facility], [facility] 10-12-2020 10:56-0400 Body mass index (BMI) [Ratio] 25.42 kg/m2 Christina Joseph LPN [facility], [facility].; [place] [facility], [facility]. 10-12-2020 10:56-0400 Body surface area Derived from formula 1.64 m2 Christina Joseph LPN [facility], [facility].; [place] [employer], [facility] 10-12-2020 10:56-0400 Body weight 63.05 kg Christina Joseph LPN [facility], [facility].; [place] [facility], [facility]. 10-12-2020 10:56-0400 Diastolic blood pressure 78 mm[Hg] Christina Anderson Jake RAYMOND [employer]. Comment on above: Patient Position: Sitting; Cuff Location : Right Arm; Cuff Size: Standard 10-12-2020 10:56-0400 Heart rate 68 /min Christina Anderson Jake RAYMOND [place] [facility], [employer].; [employer] Comment on above: Pattern: Regular 10-12-2020 10:56-0400 Systolic blood pressure 114 mm[Hg] Christina Joseph BOAT DESIGNER [employer] Comment on above: Patient Position: Sitting; Cuff Location : Right Arm; Cuff Size: Standard 06-24-2014 13:29-0500 Body height 157.48 cm Luke Nader PA-C Work Phone: [employer]. 06-24-2014 13:29-0500 Body mass index (BMI) [Ratio] 27.25 kg/m2 LuNovaTorqueNader PA-C Work Phone: [employer]. 06-24-2014 13:29-0500 Body surface area Derived from formula 1.69 m2 Luke Nader PA-C Work Phone: [employer] 06-24-2014 13:29-0500 Body weight 67.59 kg LuNovaTorqueNader PA-C Work Phone: [employer]. 06-24-2014 13:29-0500 Diastolic blood pressure 94 mm[Hg] Luke Nader PA-C Work Phone: [employer]. Comment on above: Patient Position: Sitting; Cuff Location : Left Arm; Cuff Size: Standard 06-24-2014 13:29-0500 Heart rate 89 /min Luke Nader PA-C Work Phone: [employer] Comment on above: Pattern: Regular 06-24-2014 13:29-0500 Systolic blood pressure 119 mm[Hg] Luke Nader PA-C Work Phone: [place] [employer]. Comment on above: Patient Position: Sitting; Cuff Location : Left Arm; Cuff Size: Standard 05-01-2014 16:08-0500 Body height 157.48 cm Luke Nader PA-C Work Phone: [employer]. 05-01-2014 16:08-0500 Body mass index (BMI) [Ratio] 27.44 kg/m2 Luke Nader PA-C Work Phone: [employer] 05-01-2014 16:08-0500 Body surface area Derived from formula 1.69 m2 Luke Nader PA-C Work Phone: [employer]; [employer]. 05-01-2014 16:08-0500 Body weight 68.04 kg Luke Nader PA-C Work Phone: [employer]; [employer]. 05-01-2014 16:08-0500 Diastolic blood pressure 81 mm[Hg] Luke Nader PA-C Work Phone: [employer]; [employer]. Comment on above: Patient Position: Sitting; Cuff Location : Left Arm; Cuff Size: Large 05-01-2014 16:08-0500 Heart rate 85 /min Luke Nader PA-C Work Phone: [employer]; [employer]. Comment on above: Pattern: Regular 05-01-2014 16:08-0500 Systolic blood pressure 131 mm[Hg] Luke Nader PA-C Work Phone: [employer]; [employer] Comment on above: Patient Position: Sitting; Cuff Location : Left Arm; Cuff Size: Large 04-18-2014 14:37-0400 Body height 157.48 cm Rosa Mercado Eusebio [facility], Inc.; [employer] [facility], [employer]. 04-18-2014 14:37-0400 Body mass index (BMI) [Ratio] 27.44 kg/m2 Rosa Rogelio Kaplan [facility], Inc.; [employer] [facility], [employer]. 04-18-2014 14:37-0400 Body surface area Derived from formula 1.69 m2 Rosa Rogelio Kaplan [facility], [facility].; [employer], [employer]. 04-18-2014 14:37-0400 Body temperature 98.3 [degF] Rosa Rogelio Kaplan [facility], [employer]. Comment on above: Method: Tympanic 04-18-2014 14:37-0400 Body weight 68.04 kg Rosa Rogelio Kaplan [facility], [facility].; [employer], [employer]. 04-18-2014 14:37-0400 Diastolic blood pressure 93 mm[Hg] Rosa Rogelio Kaplan [facility] [employer] [facility], [facility].; [employer], [employer]. Comment on above: Patient Position: Sitting; Cuff Location : Right Arm; Cuff Size: Standard 04-18-2014 14:37-0400 Heart rate 92 /min Rosa Rogelio Kaplan [facility], [facility] [employer], [employer]. Comment on above: Pattern: Regular 04-18-2014 14:37-0400 Systolic blood pressure 137 mm[Hg] Rosa Rogelio Kaplan BO[employer] DES[employer] [place] [employer] [facility], [facility] [employer]. Comment on above: Patient Position: Sitting; Cuff Location : Right Arm; Cuff Size: Standard 08-03-2011 14:44-0500 Body height 157.48 cm Rocio Moreno [facility] [employer] [facility], [facility].; [employer], [employer]. 08-03-2011 14:44-0500 Body mass index (BMI) [Ratio] 27.58 kg/m2 Rocio Moreno [facility] [employer] [facility], [employer].; [employer] 08-03-2011 14:44-0500 Body surface area Derived from formula 1.7 m2 Rocio Mohini Josh BOAT DESIGNER [facility] [facility], [employer].; [employer], [employer]. 08-03-2011 14:44-0500 Body weight 68.4 kg Rocio Mohini Moreno BOAT DESIGNER [facility], [facility].; [employer] 08-03-2011 14:44-0500 Diastolic blood pressure 78 mm[Hg] Rocio C [place] BOAT DESIGNER [employer] [facility], [facility].; [employer], [employer]. Comment on above: Patient Position: Sitting; Cuff Location : Left Arm; Cuff Size: Large 08-03-2011 14:44-0500 Heart rate 79 /min Rocio C Josh BOAT DESIGNER [employer] [facility], [facility] [employer], [employer]. Comment on above: Pattern: Regular 08-03-2011 14:44-0500 Systolic blood pressure 113 mm[Hg] Rocio C Josh BO[employer] DES[employer]ER [place] [employer] [facility], [facility] [employer], [employer]. Comment on above: Patient Position: Sitting; Cuff Location : Left Arm; Cuff Size: Large 03-15-2011 11:36-0400 Body height 157.48 cm Shahida Tobi Aliceaert BOAT DESIGNER [employer] [facility], [facility].; [employer], [employer]. 03-15-2011 11:36-0400 Body mass index (BMI) [Ratio] 27.14 kg/m2 Shahida L Richert [employer] DES[employer] [place] [employer] [facility], [facility].; [employer], [employer]. 03-15-2011 11:36-0400 Body surface area Derived from formula 1.68 m2 Shahida L Richert [employer] DES[employer] [place] [employer] [facility], [facility].; [employer], [employer]. 03-15-2011 11:36-0400 Body weight 67.31 kg Shahida L Richert [employer] DES[employer], [employer], [employer]. 03-15-2011 11:36-0400 Diastolic blood pressure 86 mm[Hg] Shahida L Richert BOAT DES[employer]ER [employer], [employer]. Comment on above: Patient Position: Sitting; Cuff Location : Right Arm; Cuff Size: Large 03-15-2011 11:36-0400 Heart rate 90 /min Shahida L Richert BOAT DESIGNER [employer] [facility].; [employer]. Comment on above: Pattern: Regular 03-15-2011 11:36-0400 Systolic blood pressure 122 mm[Hg] Shahida Helton LPN [employer] [facility] [employer]. Comment on above: Patient Position: Sitting; Cuff Location : Right Arm; Cuff Size: Large Encounters Encounter Date Encounter Type Care Provider Facility Start: 01-08-2025 ambulatory [facility] Facility:[facility] Start: 01-06-2025 ambulatory [facility] Facility:[facility] Start: 01-03-2025 End: 01-03-2025 ambulatory [facility] Start: 12-02-2024 End: 12-02-[address] Chema Harper MD -[facility] Work Phone: Start: 12-02-2024 End: 12-02-[address] [facility] Doctor [facility] Work Phone: Start: 08-05-2024 End: 08-05-2024 ambulatory [facility] Start: 06-20-2024 End: 06-20-2024 ambulatory [facility] Start: 06-20-2024 Encounter for gynecological examination (general) (routine) without abnormal findings [facility] Start: 10-12-2020 End: 10-12-2020 Patient encounter procedure Jair Doe PA-C Work Phone: [facility] Start: 12-14-2018 End: 12-14-2018 Historical Summary Jair FARMER-Mohini Work Phone: [facility] Start: 06-24-2014 End: 06-26-2014 Office outpatient visit 15 minutes Jair Doe PA-C Work Phone: [employer] Start: 06-20-2014 End: 06-20-2014 Medication Jair FARMER-Mohini Work Phone: [employer] Start: 05-01-2014 End: 05-02-2014 Office outpatient visit 15 minutes Luke Nader PA-C Work Phone: [employer]. Start: 04-22-2014 End: 04-22-2014 Orders Luke Nader PA-C Work Phone: [employer] [facility]. Start: 04-18-2014 End: 04-18-2014 Office outpatient visit 15 minutes Luke Nader PA-C Work Phone: [employer] Start: 08-03-2011 End: 08-04-2011 Patient encounter procedure Luke Nader PA-C Work Phone: [employer] Start: 03-15-2011 End: 03-15-2011 Patient encounter procedure Luke Nader PA-C Work Phone: [employer] Start: 06-22-2010 End: 06-22-2010 Medication Luke Nader PA-C Work Phone: [employer] Start: 04-28-2010 End: 04-28-2010 Historical Summary Luke Nader PA-C Work Phone: [employer] Procedures Date Procedure Procedure Detail Performing Clinician Start: 12-12-2018 End: 12-12-2018 Screening colonoscopy Jair Mixonetler P A-C Work Phone: Comment on above: diverticulitisDr Johnie Victoria Start: 06-24-2014 End: 06-24-2014 No Known Health Maintenance History She Roddy RAYMOND Start: 04-22-2014 End: 04-28-2014 Echo tthrc r-t 2d w/wom-mode compl spec&colr d Jay Rose MD Work Phone: Start: 04-18-2014 End: 04-28-2014 Myocardial spect multiple studies Jay Rose MD Work Phone: Start: 04-18-2014 End: 04-28-2014 Ecg routine ecg w/least 12 lds i&r only Jay Rose MD Work Phone: Start: 08-03-2011 End: 08-04-2011 Removal impacted cerumen instrumentation unilat Jay Rose MD Work Phone: Plan of Treatment Date Care Activity Detail Author Start: 12-02-2024 Evaluation of diagno stic study results [facility] Payers Date Payer Category Payer Self-pay 2024 Unknown [id number] 1965 Unknown [id number] [id number] [id number] 1965 Unknown [id number] [id number] [id number] 1965 Unknown [id number] 2.16.8 [id number] Unknown 197 Unknown . Unknown [id number] 2.16.8 [id number] Unknown [id number] 2.16.8 [id number] Unknown [id number] 2.16.8 [id number] Social History Date Type Detail Facility Tobacco smoking stat [facility] Unknown if ever smoked [facility] Work Phone: Start: 1965 Sex Assigned At Female [facility] Caffeine Use Caffeine Use [facility] [employer] Tobacco Use: Tobacco Use: ; N ever smoker. [employer] Never smoked tobacco [employer] Work Phone: Progress note 12-02-2024 Note Date & Type Note Facility 12-02-2024 Progress note [facility] Progress note 12-02-2024 Note Date & Type Note Facility 12-02-2024 Progress note Note Date/Time December 02, 2024 11:55am [facility] [address] [place] [address] OFFICE VISIT Date of Service: 12/02/24 MR#: [id number] Acct: [id number] Name: KADI VICTORIA Rep #: [id number] : 1965 Provider: Dr. Darius Harper MD Age/Sex: 59/F Location: [facility] Status: Signed HPI HPI History of Present Illness Details: This pleasant lady has a family history of coronary artery disease. For the past few months, she has been feeling unduly exhausted after physical activity. Per her, she sometimes gets chest tightness with exertion but not reliably or predictably so. Denies any shortness of breath with exertion. Per her, it is an hour or so after the physical activity that she really feels exhausted. Denies orthopnea or PND. No ankle edema. In the past, she had some complaints of heart beating very strong particularly at night. However those symptoms have since resolved. Per patient, she has recently had her blood workup done by her primary care physician including CBC and TSH. These were all within normal range. Intake Vital Signs 12/02/24 11:15 Height 5 ft 2 in Weight: 143 lb BMI 26.2 BP 127/77 H Blood Pressure Location Lt brachial Position Sitting Respiration 18 Pulse 72 Pulse Source NIBP Intake Visit Reasons: SILVIA (FREDDY) French Edge Operator Required: No Accompanied by: Is patient in pain?: No Allergies No Known Drug Allergies Allergy (Verified 12/02/24 11:16) Other Medications ?Medication ?Instructions ?Recorded ?Confirmed ?Type ascorbate calcium-bioflavonoid PO 12/02/24 12/02/24 Hi story [Mayra-C with Bioflavonoids] liothyronine 5 mcg tablet (Cytomel) 10 mcg PO QDAY 12/02/24 History progesterone micronized PO DAILY 12/02/24 12/02/24 H istory thyroid (pork) 60 mg tablet 60 mg PO QDAY 12/02/24 History ([place] Thyroid) Ejection fraction %: 55 Have you fallen in the past year?: No PFSH Medical History Chest pain Family history of coronary artery disease Fatigue Wheezing ROS Const Const: Positive for fatigue and weakness; Negative for headache(s) or weight gain ENT ENT: Negative for headache(s), dizziness, Nosebleed/epistaxis or balance problems Cardio Chest Pain: No Frequency: weekly and other Character: tightness and squeezing Onset: at rest Location: mid sternal and left chest Duration: brief Exacerbation: exercise Palpitations: Yes feels like its: fast Edema: None Muscle aches with walking: None Resp Respiratory: Negative for SOB with activity, SOB at rest or SOB orthopneaundefinedSOB lying down GI GI: Positive for nausea and heartburn; Negative vomiting Musc Musc: Positive for muscle weakness; Negative for muscle aches/ myalgia, joint pain or balance problems Neuro Neuro: Positive for lightheadedness (single episode) and weakness; Negative for dizziness, near syncope, syncope or headache(s) Endo Endo: Positive for fatigue Cardiology Exam Const Appearance: comfortable and no acute distress Nutritional Appearance: well nourished Neck Neck: no JVD Carotids: Negative bruit Chest Auscultation: Bilateral: Clear to Auscultation Cardio Rate: regular rate Rhythm: regular rhythm Heart sounds: S1 normal and S2 normal Neuro General: patient alert, patient awake and patient oriented x3 Extremities Lower Extremity Edema: None: Bilateral Supplemental Info Supplemental Information Echocardiogram 04/22/2014: Conclusion: 1. Normal left ventricular systolic function, ejection fraction 55%. 2. Trivial mitral insufficiency. 3. Mild tricuspid insufficiency. 4. Trivial aortic insufficiency. 5. Trivial pulmonic insufficiency. 6. Right ventricular systolic pressure estimated to be 19mmHg. Stress Test 04/22/2014: Stress SPECT with Treadmill Exercise Interpretation: Resting Images: Normal perfusion throughout the left ventricle. No resting defects noted. Stress Images: Normal perfusion throughout the left ventricle. No fixed defects to suggest infarct. No reversible defects developing with stress to suggest inducible ischemia. Gated SPECT/wall motion: Normal wall motion with brightening in all segments, calculated ejection fraction of 70%. Conclusion: 1. Stress nuclear study demonstrating no evidence of infarct or inducible ischemia. Electrocardiogram Stress Test Conclusion: 1. Good exercise tolerance achieving a workload of 10.1 METs. 2. Shortness of breath and substernal chest burning suspicious for angina noted with stress. 3. No ST changes to suggest ischemia elicited with stress. 4. Nuclear images demonstrate no evidence of infarct or inducible ischemia, calculated ejection fraction of 70%. Assessment and Plan Assessment and Plan (1) Chest pain: Status: Chronic Plan: Atypical however with her risk factors, will check an exercise stress echocardiogram. (2) Fatigue: Status: Chronic Plan: Check echocardiogram. (3) Family history of coronary artery disease: Status: Chronic Plan: See #1 and 2 above. Check lipid panel. (4) Hypothyroidism: Status: Chronic Plan: On thyroid replacement therapy. Continue to manage as per PCP. Orders: Orders 12 Lead EKG performed by [facility] R07.9 - Chest pain, unspecified, R53.83 - Other fatigue, Z82.49 - Family history of ischemic heart disease and other diseases of the circulatory system Plan Details Follow Up: 6 Months Coding Level of Care Code Off vis,new,level 4 Diagnoses Chest pain R07.9 Fatigue R53.83 Family history of coronary artery disease Z82.49 Hypothyroidism E03.9 Coding Level of Care Code Off vis,new,level 4 Diagnoses Chest pain R07.9 Fatigue R53.83 Family history of coronary artery disease Z82.49 Hypothyroidism E03.9 Clinical Quality Measures Falls Risk Screening/Assistive Devices Have you fallen in the past year?: No Cardiac Ejection fraction %: 55 12/02/24 1155 <Electronically signed by Chema Harper MD> Date _ Chema Harper MD Cosigner Signature: Date (if applicable) CC: Zaina Sevilla ~ [facility] [employer] Work Phone: Evaluation note Note Date & Type Note Facility Evaluation note Diagnosis Onset Date Resolution Chest pain chronic December 02 11:05am Family history of coronary artery disease chronic November 11:05am Fatigue chronic December 02 11:05am Hypothyroidism chronic December 02, 2024 11:05am [facility] Work Phone: Reason for referral (narrative) Note Date & Type Note Facility Reason for referral (narrative) No reason for referral information available [facility] [employer] [facility] Work Phone: Summary Purpose Family History No Family History Records FoundNo Family History Records FoundNo Family History Records FoundNo Family History Records FoundNo Family History Records Found Advance Directives No Advanced Directives Records FoundNo Advanced Directives Records FoundNo Advanced Directives Records FoundNo Advanced Directives Records FoundNo Advanced Directives Records Found Chief Complaint and Reason for Visit Chief Complaint Admit Date CP (FREDDY) December 02, 2024 11:0 5am Reason for Visit Admit Date Chest pain December 02, 2024 11:0 5am Family history of coronary artery diseas e December 02, 2024 11:05am Fatigue December 02, 2024 11:0 5am Hypothyroidism December 02, 2024 11:0 5am Additional Source Comments INFORMATION SOURCE (unrecogn ized section and content) DATE CREATED AUTHOR 11/29/2020 [facility] ([place]) DATE CREATED AUTHOR AUTHOR'S ORGANIZ ATION 06/27/2021 [facility] DATE CREATED AUTHOR AUTHOR'S ORGANIZ ATION 07/01/2024 [facility] DATE CREATED AUTHOR AUTHOR'S ORGANIZ ATION 01/06/2025 [facility] DATE CREATED AUTHOR AUTHOR'S ORGANIZ ATION 01/08/2025 [facility] Care Teams (unrecognized sec tion and content) Team Status: Active Member Role Status Dates Out of Town Doctor Primary Care Provider Active Team Status: Inactive Member Role Status Dates Out of [facility] Doctor Primary Care Provider Active Start: December 02, 2024 End: December 02, [address] [facility] Doctor Referring Provider Active Sta rt: December 02, 2024 End: December 02, 2024 Dr. Chema Harper MD Attending Provider Active Start: December 02, 2024 End: December 02, 2024 Goals (unrecognized section and content) Goals may be documented in a n alternate section FOR RECORDS PERTAINING TO PATIENTS WHO ARE OR HAVE BEEN ENROLLED IN A CHEMICAL DEPENDENCY/SUBSTANCEABUSE PROGRAM, SOME INFORMATION MAY BE OMITTED. This clinical summary was aggregated from multiple sources. Caution should be exercised in using it in the provision of clinical care. This summary normalizes information from multiple sources, and as a consequence, information in this document may materially change the coding, format and clinical context of patient data. In addition, data may be omitted in some cases. CLINICAL DECISIONS SHOULD BE BASED ON THE PRIMARY CLINICAL RECORDS. [facility] [employer] [facility]. provides no warranty or guarantee of the accuracy or completeness of information in this document.
== END | disposition home or self-care (01) ==
PROVIDERS: PCP Physician Assistant; Referring Provider Internal Medicine Cardiovascular Disease; Visit Provider Internal Medicine Cardiovascular Disease
DX: R07.9 Chest pain, unspecified (principal)
CPT/HCPCS: 93017; 93350